=== PATIENT | male | born 1990 | race Two or more races ===

== ENCOUNTER 2024-07-07 12:55 | Emergency (ER) | payer MEDICAID, OTHER ==
[~2024-07-07] VITALS: Ht 175.3 cm; Wt 89.5 kg
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
[2024-07-07 15:06] VITALS: BP 114/77; PULSE 70; RESP 17; TEMP 98.7; O2SAT 99
== END 2024-07-07 15:09 | disposition home or self-care (01) ==
LOC: ER 12:55
DX: S02.2XXA Fracture of nasal bones, initial encounter for closed fracture (principal); Y04.2XXA Assault by strike against or bumped into by another person, initial encounter; Y93.89 Activity, other specified; Y92.89 Other specified places as the place of occurrence of the external cause; Y99.8 Other external cause status
CPT/HCPCS: 70486